=== PATIENT | female | born 2000 | race Caucasian/White ===

== ENCOUNTER 2024-07-08 19:30 | Emergency (ER) | payer OTHER, SELFPAY ==
--- NOTE | ~2024-07-08 | CT_ITS ---
EXAMINATION: CT brain wo con DATE: 07/08/2024 21:31 INDICATION: Headache. TECHNIQUE: Computed tomography (CT) of the head was performed without intravenous contrast. The mA wa s adjusted according to patient size. Iterative reconstruction technique was employed. The dose-lengt h product was 681.00 mGy-cm. COMPARISON: None FINDINGS: There is no intracranial hemorrhage, acute infarction, or abnormal intracranial mass lesion . The ventricles are normal in size. The paranasal sinuses are clear. The orbits are normal. There is a right mastoid effusion. There is a left otomastoid effusion. IMPRESSION: 1. Normal brain. 2. Right mastoid effusion. Left otomastoid effusion. Reviewed, dictated and finalized at location [facility]. [facility]
[2024-07-08 19:41] VITALS: BP 127/86; PULSE 77; RESP 14; TEMP 36.5; O2SAT 100
--- NOTE | 2024-07-08 20:36 | ED.FALL ---
HPI - Fall General Chief Complaint: Fall Stated Complaint: fall down apt stairs Time Seen by Provider: 07/08/24 20:32 Source: patient Mode of arrival: ambulatory Limitations: no limitations History of Present Illness HPI Narrative: This is a 24-year-old female who presents to the ED for chief complaint of fall downstairs that occurred 1 week ago. Patient reports that she slipped due to the rain and slid down around 10 steps. Reports injury to the lateral/posterior left hip. Reports she did not have a specific head injury but has noted increased headaches since the injury. Denies persistent vomiting, numbness, weakness, LOC or any further sites of pain or injury. Related Data Allergies Allergy/AdvReac Type Severity Reaction Status Date / Time No Known Allergies Allergy Verified 07/08/24 21:11 Review of Systems Review of Systems: All systems as dictated in HPI Exam Narrative: GENERAL: Well-appearing, well-nourished, and in no acute distress. HEAD: Normocephalic, atraumatic. EYES: PERRLA and EOMI. ENT: Nares clear, no rhinorrhea or epistaxis. Mucous membranes moist. Oropharynx without tonsillar hypertrophy exudate or other lesions. NECK: Supple. No adenopathy or masses. CHEST: No respiratory distress. Clear to auscultation. No wheezes rales or rhonchi HEART: Regular rate and rhythm. No murmur heard. Normal peripheral pulses. ABDOMEN: Soft, nontender, nondistended, normal active bowel sounds. MSK: Normal range of motion. No edema. No midline spinal tenderness. Mild left SI joint tenderness. SKIN: Warm, dry, no rash. NEURO: Alert and oriented x4. No focal deficits. PSYCH: Normal mood and affect. Course Vital Signs Vital signs: Vital Signs Temperature 97.7 F 07/08/24 19:41 Pulse Rate 77 07/08/24 19:41 Respiratory Rate 14 07/08/24 19:41 Blood Pressure 127/86 07/08/24 19:41 Pulse Oximetry 100 07/08/24 19:41 Oxygen Delivery Room Air 07/08/24 19:41 Temperature 97.7 F 07/08/24 19:41 Pulse Rate 77 07/08/24 19:41 Respiratory Rate 14 07/08/24 19:41 Blood Pressure 127/86 07/08/24 19:41 Pulse Oximetry 100 07/08/24 19:41 Oxygen Delivery Room Air 07/08/24 19:41 MDM - Fall MDM Narrative Medical decision making narrative: This is a 24 yo female who presents to the ED for chief complaint of fall that happened a week ago. Vitals are normal. Exam shows tenderness to the left SI joint. No focal neurologic deficit. Ambulatory without difficulty. CT brain shows no acute findings. Patient will be discharged in stable condition. Supportive measures discussed and return precautions given. Patient is understanding and agreeable with plan for discharge with PCP follow-up. Discharge Plan Discharge Clinical Impression: Head injury Patient Disposition: Home, Self-Care Condition: Stable Instructions: Antibiotic Form Additional Instructions: Your exam and imaging today are reassuring overall. Please take Tylenol and ibuprofen regularly for pain and swelling. Follow-up with your PCP on this issue. If you have any new or worsening symptoms please return to the ER for further evaluation. Follow-up/Referrals: UNKNOWN,DOCTOR [Non-Staff] - Time of Disposition: 21:05
== END 2024-07-08 22:01 | disposition home or self-care (01) ==
LOC: ANHED 21:20
PROVIDERS: Emergency Provider Physician Assistant; PCP Internal Medicine
DX: S09.90XA Unspecified injury of head, initial encounter (principal); W10.9XXA Fall (on) (from) unspecified stairs and steps, initial encounter
CPT/HCPCS: 70450; 99284